=== PATIENT | male | born 1955 | race Hispanic/Latino ===

== ENCOUNTER 2019-04-06 14:56 | Inpatient (IN) | payer SELFPAY ==
[~2019-04-06] VITALS: Ht 162.6 cm; Wt 74.8 kg
[2019-04-06 15:14] LABS: BASOPHILS % (AUTO) 0.7 % (0.0-5.0); EOSINOPHILS % (AUTO) 4.7 % (0.0-8.0); LYMPHOCYTES % (AUTO) 29.9 % (21.0-51.0); MEAN CORPUSCULAR HEMOGLOBIN 34.3 pg (27.0-33.0); MEAN CORPUSCULAR HGB CONC 35.5 g/dL (32.0-36.0); MEAN CORPUSCULAR VOLUME 96.6 fL (79-99); MONOCYTES % (AUTO) 12.6 % (3.0-13.0); NEUTROPHILS % (AUTO) 52.1 % (40.0-77.0); NUCLEATED RED BLOOD CELLS 0.1 % (0.0-0.19); PLATELET COUNT (AUTO) 218 K/uL (130-400); RED BLOOD CELL COUNT(AUTO) 4.87 MIL/uL (4.50-6.20); RED CELL DISTRIBUTION WIDTH 13.2 % (11.0-15.5)
[2019-04-06] MEDS ORDERED: ASPIRIN 325 MG TABLET ONE (15:20)
[2019-04-06 15:34] LABS: APPEARANCE,URINE Clear (CLEAR); BILIRUBIN,URINE Negative (NEGATIVE); COLOR,URINE Yellow (YELLOW); GLUCOSE, URINE (UA) >=1000 mg/dL (NEGATIVE); KETONES,URINE Negative (NEGATIVE); LEUKOCYTE ESTERASE ,URINE Negative (NEGATIVE); NITRATE,URINE Negative (NEGATIVE); OCCULT BLOOD,URINE Small (NEGATIVE); PH,URINE 5.5 (5.0-8.0); PROTEIN,URINE 300 mg/dL (NEGATIVE)
[2019-04-06 15:38] LABS: CREATININE 1.2 mg/dL (0.5-1.5); INR 0.94 (0.85-1.15); PARTIAL THROMBOPLASTIN TIME 27.3 SEC (26.3-35.5); POTASSIUM 4.1 mmol/L (3.5-5.1); PROTHROMBIN TIME 9.9 SEC (9.6-11.6)
[2019-04-06] MEDS ORDERED: NITROGLYCERIN 1GM/1 INCH PACKET TD ONE (15:41)
[2019-04-06 15:44] LABS: B-TYPE NATRIURETIC PEPTIDE 170 pg/mL (0-100)
[2019-04-06 15:47] LABS: BACTERIA,URINE Few /HPF (None Seen)
[2019-04-06 15:48] LABS: MUCUS,URINE Few LPF (None Seen); SQUAMOUS EPITHELIAL CELL,UR 0-2 /HPF (0-2)
[2019-04-06 15:51] LABS: ALBUMIN 3.7 g/dL (3.5-5.0); BILIRUBIN,TOTAL 0.4 mg/dL (0.2-1.0); TOTAL PROTEIN, SERUM 7.8 g/dL (6.0-8.3)
[2019-04-06] MEDS ORDERED: MAGNESIUM OXIDE 400 MG TABLET PO ONE (16:04)
[2019-04-06] MEDS ORDERED: METOPROLOL TARTRATE 1 MG/ML 5ML VIAL IV ONE (16:19)
[2019-04-06] MEDS ORDERED: LIDOCAINE PF 2% 5ML ABBOJECT IVP ONE (16:58)
[2019-04-06] MEDS ORDERED: MANNITOL 25% 50ML VIAL IV ONE (16:58)
[2019-04-06] MEDS ORDERED: PHENYLEPHRINE HCL 10 MG/ML 1ML VIAL IV ONE (16:58)
[2019-04-06] MEDS ORDERED: ALBUMIN (HUMAN) 25% 50 ML IV ONE (16:58)
[2019-04-06] MEDS ORDERED: SODIUM BICARB 8.4% 50ML SYRINGE IVP ONE (16:58)
[2019-04-06] MEDS ORDERED: AMINOCAPROIC ACID 250 MG/ML 20 ML VIAL IV ONE (16:58)
[2019-04-06] MEDS ORDERED: MAGNESIUM SULFATE 1 GM/2 ML VIAL IM ONE (16:58)
[2019-04-06] MEDS ORDERED: CALCIUM CHLORIDE 100 MG/ML 10 ML SYG IVP ONE (16:58)
[2019-04-06] MEDS ORDERED: HEPARIN SODIUM 1000UNIT/ML 10ML VIAL IV ONE (16:58)
[2019-04-06 17:30] LABS: AMPHET/METH SCREEN,URINE NEGATIVE (NEGATIVE); BARBITURATE SCREEN, URINE NEGATIVE (NEGATIVE); BENZODIAZEPINES SCREEN,URINE NEGATIVE (NEGATIVE); CANNABINOID SCREEN,URINE NEGATIVE (NEGATIVE); COCAINE SCREEN,URINE NEGATIVE (NEGATIVE); OPIATE SCREEN,URINE NEGATIVE (NEGATIVE); PHENCYCLIDINE SCREEN,URINE NEGATIVE (NEGATIVE)
[2019-04-06] MEDS: SODIUM CHLORIDE 0.9% 1000ML 1,000 ML IV SCH ×2 (17:46→20:44)
[2019-04-06 18:00] LABS: TROPONIN I 0.21 ng/mL (0.00-0.06)
[2019-04-06] MEDS ORDERED: ZOLPIDEM TARTRATE 5 MG TAB PO PRN (18:00)
[2019-04-06] MEDS ORDERED: HYDRALAZINE HCL 20 MG/ML VIAL IV PRN (18:00)
[2019-04-06] MEDS ORDERED: LACTULOSE 20 GM/30 ML UDCUP PO PRN (18:00)
[2019-04-06] MEDS ORDERED: ONDANSETRON HCL 4 MG/2 ML VIAL IV PRN (18:00)
[2019-04-06] MEDS ORDERED: DEXTROSE 50%-WATER 50 ML DISP.SYRIN IV PRN (18:00)
[2019-04-06] MEDS: NITROGLYCERIN 1GM/1 INCH PACKET TD SCH (18:00)
[2019-04-06] MEDS ORDERED: GLUCAGON 1MG KIT 1 MG ML IM PRN (18:00)
[2019-04-06] MEDS ORDERED: POTASSIUM CHLORIDE 10% ELIXIR 20 MEQ/15 ML UDCUP PO PRN (18:00)
[2019-04-06] MEDS ORDERED: GUAIFENESIN-DM 200/20 MG 10 ML PO PRN (18:00)
[2019-04-06] MEDS ORDERED: NITROGLYCERIN 0.4 MG SL TAB SL PRN (18:00)
[2019-04-06] MEDS ORDERED: LIDOCAINE HCL-MPF 1% 2ML VIAL IV PRN (18:00)
[2019-04-06 18:16] LABS: CHOLESTEROL 187 mg/dL (<200); HDL CHOLESTEROL 44 mg/dL (29-71); LDL DIRECT 113 mg/dL (0-99); TRIGLYCERIDES 453 mg/dL (30-200)
[2019-04-06] MEDS ORDERED: ATORVASTATIN CALCIUM 40 MG TABLET ONE (18:23)
[2019-04-06] MEDS: FAMOTIDINE 20MG TAB 20 MG TAB PO SCH (20:44)
[2019-04-06] MEDS: METOPROLOL TARTRATE 25 MG TAB PO SCH (20:44)
[2019-04-06] MEDS: ACETAMINOPHEN 325 MG TAB PO PRN (20:45)
[2019-04-06] MEDS: LISINOPRIL 10 MG TABLET PO SCH (20:46)
[2019-04-06 20:47] VITALS: BP 143/77
[2019-04-06] MEDS: INSULIN HUMULIN R 100 UNIT/ML 3ML SQ SCH (20:53)
[2019-04-06] MEDS: ALPRAZOLAM 0.5 MG TABLET PO SCH (21:00)
[2019-04-06] MEDS ORDERED: TRAM50TA4 PO (22:18)
[2019-04-06] MEDS ORDERED: QUIN20TA26 PO (22:18)
[2019-04-06] MEDS ORDERED: ASPI-555 PO (22:18)
[2019-04-06] MEDS ORDERED: METF-444 PO (22:18)
[2019-04-06 23:32] VITALS: BP 100/57
[2019-04-07] VITALS (14 sets, daily range): BP systolic 122–174; BP diastolic 54–86
[2019-04-07] MEDS: NITROGLYCERIN 1GM/1 INCH PACKET TD SCH ×3 (01:39→17:52)
[2019-04-07 04:56] LABS: HEMOGLOBIN A1C 8.7 % (4.0-6.0)
[2019-04-07 05:07] LABS: CREATININE 1.3 mg/dL (0.5-1.5); MAGNESIUM 1.8 mg/dL (1.80-2.40); PHOSPHORUS 3.6 mg/dL (2.5-4.9); POTASSIUM 3.7 mmol/L (3.5-5.1)
[2019-04-07] MEDS: INSULIN HUMULIN R 100 UNIT/ML 3ML SQ SCH ×4 (05:40→21:00)
[2019-04-07] MEDS: LISINOPRIL 10 MG TABLET PO SCH ×2 (07:21→21:02)
[2019-04-07] MEDS: METOPROLOL TARTRATE 25 MG TAB PO SCH ×2 (07:21→21:00)
[2019-04-07] MEDS ORDERED: LIDOCAINE HCL 2% 20ML ONE (07:32)
[2019-04-07] MEDS ORDERED: NITROGLYCERIN 5 MG/ML 10 ML VIAL IV ONE (07:32)
[2019-04-07] MEDS ORDERED: IOHEXOL-350 50ML VIAL IV ONE (07:32)
[2019-04-07] MEDS ORDERED: HEPARIN SODIUM 1000UNIT/ML 10ML VIAL ONE (07:32)
[2019-04-07] MEDS ORDERED: IOHEXOL 350 MG/ML 100ML INFUS..BTL IV ONE (07:32)
[2019-04-07] MEDS ORDERED: MIDAZOLAM HCL 1 MG/ML 2ML VIAL ONE (08:28)
[2019-04-07] MEDS ORDERED: NITROGLYCERIN 4.1 GM SPRAY TL ONE (08:37)
[2019-04-07] MEDS ORDERED: ENOXAPARIN SODIUM 40 MG/0.4 ML SYRINGE SQ SCH (09:00)
[2019-04-07] MEDS ORDERED: ASPIRIN 81MG TAB.CHEW PO SCH (09:00)
[2019-04-07] MEDS ORDERED: DEXTROSE 50%-WATER 50 ML DISP.SYRIN IV PRN (09:15)
[2019-04-07] MEDS ORDERED: GLUCAGON 1MG KIT 1 MG ML IM PRN (09:15)
[2019-04-07] MEDS: TRAMADOL HCL 50 MG TABLET PO PRN ×2 (09:54→21:10)
[2019-04-07] MEDS: FAMOTIDINE 20MG TAB 20 MG TAB PO SCH ×2 (09:54→21:01)
[2019-04-07] MEDS: MAGNESIUM OXIDE 400 MG TABLET PO SCH ×2 (09:55→21:02)
[2019-04-07] MEDS: SODIUM CHLORIDE 0.9% 1000ML 1,000 ML IV SCH (13:20)
--- NOTE | 2019-04-07 13:23 | NUR ---
DC PLAN PER PATIENT IS INDEPENDENT, LIVES ALONE, NO PROVIDER OR SERVICES, NO EQUIPMENT AND STATES HE FEELS SAFE TO RETURN HOME. Addendum: 04/07/19 at 1328 by JOE WILSON Amended: Links added.
[2019-04-07 16:26] LABS: HEMATOCRIT 40.5 % (42-54); MEAN CORPUSCULAR HEMOGLOBIN 33.7 pg (27.0-33.0); MEAN CORPUSCULAR HGB CONC 35.4 g/dL (32.0-36.0); MEAN CORPUSCULAR VOLUME 95.3 fL (79-99); NUCLEATED RED BLOOD CELLS 0.1 % (0.0-0.19); PLATELET COUNT (AUTO) 192 K/uL (130-400); RED BLOOD CELL COUNT(AUTO) 4.25 MIL/uL (4.50-6.20); RED CELL DISTRIBUTION WIDTH 13.2 % (11.0-15.5); WHITE BLOOD COUNT (AUTO) 6.4 K/uL (4.8-10.8)
[2019-04-07 16:41] LABS: CREATININE 1.1 mg/dL (0.5-1.5); INR 1.02 (0.85-1.15); PARTIAL THROMBOPLASTIN TIME 27.7 SEC (26.3-35.5); POTASSIUM 3.9 mmol/L (3.5-5.1); PROTHROMBIN TIME 10.7 SEC (9.6-11.6)
[2019-04-07 16:43] LABS: HEMOGLOBIN A1C 8.5 % (4.0-6.0)
[2019-04-07 16:54] LABS: B-TYPE NATRIURETIC PEPTIDE 181 pg/mL (0-100)
[2019-04-07] MEDS: ALPRAZOLAM 0.5 MG TABLET PO SCH (21:00)
[2019-04-07] MEDS: ATORVASTATIN CALCIUM 40 MG TABLET PO SCH (21:01)
[2019-04-08] VITALS (33 sets, daily range): BP systolic 89–155; BP diastolic 35–81
[2019-04-08 03:59] LABS: BASOPHILS % (AUTO) 0.4 % (0.0-5.0); EOSINOPHILS % (AUTO) 2.6 % (0.0-8.0); HEMATOCRIT 41.4 % (42-54); LYMPHOCYTES % (AUTO) 22.7 % (21.0-51.0); MEAN CORPUSCULAR HEMOGLOBIN 34.5 pg (27.0-33.0); MEAN CORPUSCULAR HGB CONC 35.8 g/dL (32.0-36.0); MEAN CORPUSCULAR VOLUME 96.4 fL (79-99); MONOCYTES % (AUTO) 11.7 % (3.0-13.0); NEUTROPHILS % (AUTO) 62.6 % (40.0-77.0); NUCLEATED RED BLOOD CELLS 0.1 % (0.0-0.19); PLATELET COUNT (AUTO) 182 K/uL (130-400); RED BLOOD CELL COUNT(AUTO) 4.29 MIL/uL (4.50-6.20)
[2019-04-08 04:08] LABS: CREATININE 1.1 mg/dL (0.5-1.5); MAGNESIUM 2.4 mg/dL (1.80-2.40)
[2019-04-08] MEDS: NITROGLYCERIN 1GM/1 INCH PACKET TD SCH (04:20)
[2019-04-08] MEDS: INSULIN HUMULIN R 100 UNIT/ML 3ML SQ SCH (06:04)
[2019-04-08] MEDS ORDERED: CEFAZOLIN SODIUM 1 GM VIAL ONE ×2 (06:53→11:24)
[2019-04-08] MEDS ORDERED: SODIUM CHLORIDE 0.9% 1000ML 1,000 ML IV ONE (06:53)
[2019-04-08] MEDS ORDERED: NITROGLYCERIN 50 MG/D5% WATER 1 BOT ONE (07:13)
[2019-04-08] MEDS ORDERED: PROTAMINE SULFATE 10 MG/ML 25ML VIAL IV ONE ×2 (07:15→11:43)
[2019-04-08] MEDS ORDERED: ESMOLOL HCL 10 MG/ML 10 ML VIAL ONE ×2 (07:15→07:43)
[2019-04-08] MEDS ORDERED: LIDOCAINE PF 2% 5ML ABBOJECT ONE ×2 (07:15→07:18)
[2019-04-08] MEDS ORDERED: EPINEPHRINE 1 MG/ML AMPULE ONE (07:16)
[2019-04-08] MEDS ORDERED: MIDAZOLAM HCL 1 MG/ML 2ML VIAL ONE (07:16)
[2019-04-08] MEDS ORDERED: ROCURONIUM 10MG/1ML SYR 10 MG/ML ML ONE ×3 (07:16→10:15)
[2019-04-08] MEDS ORDERED: NOREPINEPHRINE BITARTRATE 1 MG/1 ML ML IV ONE (07:16)
[2019-04-08] MEDS ORDERED: AMINOCAPROIC ACID 250 MG/ML 20 ML VIAL IV ONE (07:16)
[2019-04-08] MEDS ORDERED: PROPOFOL 10 MG/ML 20ML VIAL IV ONE (07:16)
[2019-04-08] MEDS ORDERED: SODIUM BICARB 50MEQ 50ML VIAL ONE (07:16)
[2019-04-08] MEDS ORDERED: HEPARIN SODIUM 1000UNIT/ML 10ML VIAL ONE (07:16)
[2019-04-08] MEDS ORDERED: FENTANYL CITRATE PF 50 MCG/1 ML 2ML VIAL ONE ×4 (07:17→07:18)
[2019-04-08] MEDS ORDERED: ETOMIDATE 2 MG/ML 10 ML VIAL ONE (07:18)
[2019-04-08] MEDS ORDERED: AMIODARONE HCL 50 MG/ML 3 ML VIAL ONE (07:21)
[2019-04-08] MEDS ORDERED: VASOPRESSIN 20 UNITS/ML 1ML VIAL ONE (07:22)
[2019-04-08] MEDS ORDERED: CEFAZOLIN SODIUM 1 GM VIAL IVP PRN (08:00)
[2019-04-08] MEDS ORDERED: DELNIDO FORMULA 1 BAG IV ONE (08:08)
[2019-04-08 08:17] LABS: ABG BASE EXCESS -2.1 mmol/L (-2.0-3.0); ABG HCO3 22.5 mmol/L (21.0-28.0); ABG OXYGEN SATURATION 99.4 % (95.0-99.0); ABG PCO2 38 mmHg (35-48)
[2019-04-08] MEDS ORDERED: FENTANYL CITRATE PF 50 MCG/1 ML 5ML AMP IV ONE ×4 (08:25→11:46)
[2019-04-08] MEDS ORDERED: BACITRACIN 50,000 UNIT VIAL ONE (08:28)
[2019-04-08] MEDS ORDERED: PAPAVERINE HCL 30 MG/ML 2ML VIAL ONE (08:28)
[2019-04-08 09:40] LABS: ABG BASE EXCESS -3.9 mmol/L (-2.0-3.0); ABG HCO3 21.8 mmol/L (21.0-28.0); ABG OXYGEN SATURATION 98.6 % (95.0-99.0); ABG PCO2 42 mmHg (35-48)
[2019-04-08 10:34] LABS: ABG BASE EXCESS 5.1 mmol/L (-2.0-3.0); ABG HCO3 29.4 mmol/L (21.0-28.0); ABG OXYGEN SATURATION 98.8 % (95.0-99.0); ABG PCO2 42 mmHg (35-48)
[2019-04-08] MEDS ORDERED: INSULIN HUMULIN R 100 UNIT/ML 3ML ONE (10:43)
[2019-04-08 11:02] LABS: ABG HCO3 21.8 mmol/L (21.0-28.0); ABG OXYGEN SATURATION 98.7 % (95.0-99.0); ABG PCO2 42 mmHg (35-48)
[2019-04-08] MEDS ORDERED: SODIUM CHLORIDE 0.9% 500ML 500 ML IV SCH (11:26)
[2019-04-08] MEDS ORDERED: SODIUM CHLORIDE 0.9% 10 ML VIAL IVP PRN (11:30)
[2019-04-08] MEDS ORDERED: SODIUM BICARB 50MEQ 50ML VIAL IV PRN (11:30)
[2019-04-08] MEDS ORDERED: ONDANSETRON HCL 4 MG/2 ML VIAL IV PRN (11:30)
[2019-04-08] MEDS ORDERED: TRAMADOL HCL 50 MG TABLET PO PRN (11:30)
[2019-04-08] MEDS ORDERED: PROPOFOL 1000 MG/100 ML 100 ML IV PRN (11:30)
[2019-04-08] MEDS ORDERED: CALCIUM GLUCONATE 1 GM in SODIUM CHLORIDE 0.9% 50 ML IV PRN (11:30)
[2019-04-08] MEDS ORDERED: MAGNESIUM 2GM PREMIX 50ML 50 ML IV PRN (11:30)
[2019-04-08] MEDS ORDERED: SODIUM CHLORIDE 0.9% 1000ML 1,000 ML IV SCH (11:30)
[2019-04-08] MEDS ORDERED: NITROGLYCERIN 50 MG/D5% WATER 250 BOT IV SCH (11:30)
[2019-04-08] MEDS ORDERED: MORPHINE SULFATE 2 MG/ML 1ML SYG IV PRN (11:30)
[2019-04-08] MEDS ORDERED: DEXTROSE 50%-WATER 50 ML DISP.SYRIN IV PRN (11:30)
[2019-04-08] MEDS ORDERED: MORPHINE SULFATE 4 MG/1ML SYG IV PRN (11:30)
[2019-04-08] MEDS ORDERED: ALBUMIN (HUMAN) 5% 250 ML IV PRN (11:30)
[2019-04-08] MEDS ORDERED: POTASSIUM PHOS 15 mMOL+NS250ML 250 ML IV PRN (11:30)
[2019-04-08] MEDS ORDERED: ACETAMINOPHEN 325 MG TAB PO PRN (11:30)
[2019-04-08] MEDS ORDERED: GLUCAGON 1MG KIT 1 MG ML IM PRN (11:30)
[2019-04-08] MEDS ORDERED: ACETAMINOPHEN 650 MG SUPPOSITORY RC PRN (11:30)
[2019-04-08] MEDS ORDERED: INSULIN REGULAR, HUMAN 3ML 100 UNIT in SODIUM CHLORIDE 0.9% 99 ML IV SCH ×2 (11:30)
[2019-04-08] MEDS ORDERED: AMINOCAPROIC ACID 15,000 MG in SODIUM CHLORIDE 0.9% 250 ML IV SCH (11:30)
[2019-04-08] MEDS ORDERED: SODIUM CHLORIDE 0.9% 250 ML IV PRN (11:30)
[2019-04-08] MEDS ORDERED: NOREPINEPHRINE 4MG/NS 250ML 250 ML IV PRN (11:30)
[2019-04-08] MEDS ORDERED: EPINEPHRINE 8 MG in DEXTROSE 5%-WATER 250 ML IV PRN (11:30)
[2019-04-08 11:33] LABS: ABG BASE EXCESS -5.2 mmol/L (-2.0-3.0); ABG HCO3 20.8 mmol/L (21.0-28.0); ABG OXYGEN SATURATION 96.6 % (95.0-99.0); ABG PCO2 42 mmHg (35-48)
[2019-04-08] MEDS ORDERED: POTASSIUM CHLORIDE 20MEQ/100ML 300 ML IV ONE (11:35)
[2019-04-08] MEDS ORDERED: METOPROLOL TARTRATE 1 MG/ML 5ML VIAL IV ONE (11:42)
--- NOTE | 2019-04-08 12:10 | NUR ---
ARRIVAL TO [facility] Received from OR.Dr. Crook and JOE Eastman at bedside. Orally intubated with 7.5ETT at 21cm at lips, connected to Endotracheal cardiac output monitor, tolerating vent settings as prescribed. Left radial arterial line patent, leveled and zeroed. Levophed drip at 8mcg/min, Epinephrine drip at 0.05mcg/kg/min, Amicar at 50cc/hr via 9fr Central line triple lumen to right IJ. 18gauge IV catheter to left forearm patent. Chest tubes x3, patent, no air leak noted with sanguineous output. Arreguin catheter to gravity. Pulses palpable. Zack-wrap to left donor leg. Sinus mechanism in 80s, no ectopy. ASBP 140s. Addendum: 04/08/19 at 1846 by ALLI TRISTAN RN pacing wires attached to chest.
[2019-04-08 12:33] LABS: MEAN CORPUSCULAR HEMOGLOBIN 33.9 pg (27.0-33.0); MEAN CORPUSCULAR HGB CONC 34.9 g/dL (32.0-36.0); MEAN CORPUSCULAR VOLUME 97.2 fL (79-99); NUCLEATED RED BLOOD CELLS 0.1 % (0.0-0.19); PLATELET COUNT (AUTO) 163 K/uL (130-400); RED BLOOD CELL COUNT(AUTO) 3.91 MIL/uL (4.50-6.20); WHITE BLOOD COUNT (AUTO) 22.2 K/uL (4.8-10.8)
[2019-04-08 12:35] LABS: ABG BASE EXCESS -5.1 mmol/L (-2.0-3.0); ABG OXYGEN SATURATION 93.6 % (95.0-99.0); ABG PCO2 43 mmHg (35-48)
[2019-04-08 12:42] LABS: INR 1.14 (0.85-1.15); PARTIAL THROMBOPLASTIN TIME 24.3 SEC (26.3-35.5); PROTHROMBIN TIME 11.9 SEC (9.6-11.6)
[2019-04-08 12:48] LABS: CREATININE 1.4 mg/dL (0.5-1.5); PHOSPHORUS 2.7 mg/dL (2.5-4.9); POTASSIUM 3.5 mmol/L (3.5-5.1)
[2019-04-08] MEDS: POTASSIUM CHLORIDE 20MEQ/100ML 100 ML IV PRN ×5 (13:07→21:17)
--- NOTE | 2019-04-08 13:10 | NUR ---
BENCHMARK Kimberly Chaves in to see pt, new orders received and will carry out.
[2019-04-08] MEDS ORDERED: FUROSEMIDE 10 MG/ML 2ML VIAL IV SCH (13:15)
--- NOTE | 2019-04-08 13:15 | NUR ---
CARDIOLOGY [facility] paged to notify about pt's arrival to [facility], Eva answered and stated Dr. Leyva was already aware and will see the pt in am.
[2019-04-08 14:22] LABS: ABG HCO3 30.1 mmol/L (21.0-28.0); ABG PCO2 41 mmHg (35-48)
--- NOTE | 2019-04-08 14:45 | NUR ---
FAMILY Family in to see pt, plan of care discussed. Marcial Steward (brother) identified as person of contact, may be reached at .
--- NOTE | 2019-04-08 14:55 | NUR ---
SURGEON Dr. Parada in to see pt, update given. Wean to extubate per CVR protocol, will carry out.
[2019-04-08] MEDS: CEFAZOLIN SODIUM 1 GM VIAL IV SCH (16:24)
[2019-04-08 17:44] LABS: ABG BASE EXCESS 5.2 mmol/L (-2.0-3.0); ABG HCO3 28.5 mmol/L (21.0-28.0); ABG OXYGEN SATURATION 98.5 % (95.0-99.0); ABG PCO2 37 mmHg (35-48)
[2019-04-08 18:22] LABS: ABG BASE EXCESS 5.1 mmol/L (-2.0-3.0); ABG HCO3 29.6 mmol/L (21.0-28.0); ABG OXYGEN SATURATION 96.6 % (95.0-99.0); ABG PCO2 43 mmHg (35-48)
--- NOTE | 2019-04-08 18:25 | NUR ---
EXTUBATION Fully awake, alert, following commands. Able to sustain head-lift, strong bilateral hand immigration manager. Arterial blood gases completed. Negative inspiratory force of 23oeV2n, Vital capacity of 750cc. Extubated and placed on Aerosol mask 40%, tolerating well. Instructed not to speak for 2 hours, nods understanding.
--- NOTE | 2019-04-08 19:02 | NUR ---
MD NOTIFICATION Dr. Parada notified of core Temperature 102.0, update given on extubation as well.
--- NOTE | 2019-04-08 19:30 | NUR ---
ASSESSMENT PT DROWSY BUT AROUSES EASILY, FOLLOWS SIMPLE COMMANDS. PT RECEIVING FLUIDS. 40% AEROSOL MASK IN PLACE. TEMP 102.[address] MARC OLIVEIRA MADE AWARE BY LILIYA DIAZ. PT ORIENTED TO TIME, PERSON AND PLACE. MONITOR REVIEWED AND PARAMETERS ADJUSTED. ASSESSMENT COMPLETED, SEE FLOW SHEET. NURSE AT BEDSIDE PER 1:1.
[2019-04-08 19:41] LABS: ABG BASE EXCESS 3.2 mmol/L (-2.0-3.0); ABG HCO3 26.9 mmol/L (21.0-28.0); ABG OXYGEN SATURATION 96.8 % (95.0-99.0); ABG PCO2 38 mmHg (35-48)
[2019-04-08] MEDS: FAMOTIDINE/PF 20 MG/2 ML VIAL IV SCH (20:27)
[2019-04-08] MEDS: ATORVASTATIN CALCIUM 40 MG TABLET PO SCH (20:57)
[2019-04-09] VITALS (24 sets, daily range): BP systolic 104–150; BP diastolic 50–180
[2019-04-09] MEDS: CEFAZOLIN SODIUM 1 GM VIAL IV SCH ×2 (00:38→08:08)
[2019-04-09] MEDS: TRAMADOL HCL 50 MG TABLET PO PRN ×3 (02:30→17:17)
--- NOTE | 2019-04-09 04:00 | NUR ---
ASSESSMENT PT DROWSY BUT AROUSES EASILY, FOLLOWS SIMPLE COMMANDS. PT RECEIVING FLUIDS. O2 3L NC. NSR. PT ORIENTED TO TIME, PERSON AND PLACE. ASSESSMENT COMPLETED, SEE FLOW SHEET. NURSE AT BEDSIDE PER 1:1.
[2019-04-09 04:11] LABS: ABG BASE EXCESS 2.7 mmol/L (-2.0-3.0); ABG HCO3 26.5 mmol/L (21.0-28.0); ABG OXYGEN SATURATION 91.1 % (95.0-99.0); ABG PCO2 38 mmHg (35-48)
[2019-04-09 04:20] LABS: HEMATOCRIT 37.3 % (42-54); MEAN CORPUSCULAR HEMOGLOBIN 33.8 pg (27.0-33.0); MEAN CORPUSCULAR HGB CONC 34.9 g/dL (32.0-36.0); NUCLEATED RED BLOOD CELLS 0.1 % (0.0-0.19); PLATELET COUNT (AUTO) 148 K/uL (130-400); RED BLOOD CELL COUNT(AUTO) 3.84 MIL/uL (4.50-6.20); RED CELL DISTRIBUTION WIDTH 13.5 % (11.0-15.5); WHITE BLOOD COUNT (AUTO) 11.3 K/uL (4.8-10.8)
[2019-04-09 04:23] LABS: ABG BASE EXCESS 2.3 mmol/L (-2.0-3.0); ABG HCO3 26.2 mmol/L (21.0-28.0); ABG OXYGEN SATURATION 91.5 % (95.0-99.0); ABG PCO2 39 mmHg (35-48)
[2019-04-09 04:32] LABS: INR 1.09 (0.85-1.15); PROTHROMBIN TIME 11.4 SEC (9.6-11.6)
[2019-04-09 04:35] LABS: CREATININE 1.4 mg/dL (0.5-1.5); MAGNESIUM 2.3 mg/dL (1.80-2.40); POTASSIUM 4.3 mmol/L (3.5-5.1)
--- NOTE | 2019-04-09 06:40 | NUR ---
DR MARC TRAN INTO SEE PT
[2019-04-09] MEDS ORDERED: FUROSEMIDE 10 MG/ML 2ML VIAL IV SCH (07:00)
--- NOTE | 2019-04-09 07:17 | NUR ---
DR SAL HUANG INTO SEE PT
[2019-04-09] MEDS: FAMOTIDINE/PF 20 MG/2 ML VIAL IV SCH ×2 (08:08→20:41)
[2019-04-09] MEDS: ASPIRIN 325MG EC TAB 325 MG TABLET.DR PO SCH (08:09)
[2019-04-09] MEDS ORDERED: METOPROLOL TARTRATE 25 MG TAB PO SCH (09:00)
[2019-04-09] MEDS: ACETAMINOPHEN 325 MG TAB PO PRN (19:42)
[2019-04-09] MEDS: ATORVASTATIN CALCIUM 10 MG TABLET PO SCH (20:41)
[2019-04-10] VITALS (12 sets, daily range): BP systolic 133–146; BP diastolic 71–82
[2019-04-10 04:36] LABS: HEMATOCRIT 35.5 % (42-54); MEAN CORPUSCULAR HEMOGLOBIN 33.7 pg (27.0-33.0); MEAN CORPUSCULAR HGB CONC 34.7 g/dL (32.0-36.0); MEAN CORPUSCULAR VOLUME 97.1 fL (79-99); PLATELET COUNT (AUTO) 146 K/uL (130-400); RED BLOOD CELL COUNT(AUTO) 3.66 MIL/uL (4.50-6.20); RED CELL DISTRIBUTION WIDTH 13.4 % (11.0-15.5); WHITE BLOOD COUNT (AUTO) 11.5 K/uL (4.8-10.8)
[2019-04-10 04:51] LABS: CREATININE 1.2 mg/dL (0.5-1.5); POTASSIUM 3.6 mmol/L (3.5-5.1)
[2019-04-10] MEDS: POTASSIUM CHLORIDE 20MEQ/100ML 100 ML IV PRN ×2 (05:31→06:38)
[2019-04-10] MEDS: TRAMADOL HCL 50 MG TABLET PO PRN (05:32)
[2019-04-10] MEDS ORDERED: FAMOTIDINE 20MG TAB 20 MG TAB ONE (08:35)
[2019-04-10] MEDS: METOPROLOL TARTRATE 25 MG TAB PO SCH ×2 (08:38→20:25)
[2019-04-10] MEDS: ASPIRIN 325MG EC TAB 325 MG TABLET.DR PO SCH (08:38)
[2019-04-10] MEDS: FAMOTIDINE 20MG TAB 20 MG TAB PO SCH ×2 (08:44→20:26)
[2019-04-10] MEDS: INSULIN HUMULIN R 100 UNIT/ML 3ML SQ SCH ×3 (12:00→21:00)
--- NOTE | 2019-04-10 17:25 | NUR ---
RECEIVED TRANSFER VIA RECLINER. AAOX3, RESP.'S EVEN AND UNLABORED. DENIES ANY CURRENT SOB, DENIES ANY CURRENT PAIN. JULI OQUENDO IN PLACE, MAYIG D/I. MS MAYIG IN PLACE, D/I. ORIENTED TO ROOM AND SURROUNDINGS. CALL LIGHT WITHIN REACH, VERBALIZED ABILITY TO USE. IS USE INSTRUCTED AND ENCOURAGED.
[2019-04-10] MEDS: ATORVASTATIN CALCIUM 10 MG TABLET PO SCH (20:26)
[2019-04-10] MEDS: ACETAMINOPHEN 325 MG TAB PO PRN (20:27)
[2019-04-10 21:31] LABS: MAGNESIUM 1.8 mg/dL (1.80-2.40); POTASSIUM 3.7 mmol/L (3.5-5.1)
[2019-04-11 00:29] VITALS: BP 120/59
[2019-04-11 04:23] VITALS: BP 138/72
[2019-04-11 04:48] LABS: HEMATOCRIT 34.8 % (42-54); MEAN CORPUSCULAR HEMOGLOBIN 33.9 pg (27.0-33.0); MEAN CORPUSCULAR HGB CONC 35.2 g/dL (32.0-36.0); MEAN CORPUSCULAR VOLUME 96.5 fL (79-99); PLATELET COUNT (AUTO) 158 K/uL (130-400); RED BLOOD CELL COUNT(AUTO) 3.61 MIL/uL (4.50-6.20); RED CELL DISTRIBUTION WIDTH 13.1 % (11.0-15.5); WHITE BLOOD COUNT (AUTO) 8.6 K/uL (4.8-10.8)
[2019-04-11 04:59] LABS: CREATININE 1.1 mg/dL (0.5-1.5); POTASSIUM 3.6 mmol/L (3.5-5.1)
[2019-04-11] MEDS: INSULIN HUMULIN R 100 UNIT/ML 3ML SQ SCH ×4 (06:50→21:33)
[2019-04-11 07:27] VITALS: BP 142/69
--- NOTE | 2019-04-11 08:56 | NUR ---
DR. Nathalie WESLEY IN ROOM SPEAKING WITH PT. RE:PLAN OF CARE. QUESTIONS ANSWERED BY DR. WESLEY.
[2019-04-11] MEDS: ENALAPRIL MALEATE 5 MG TAB PO SCH ×2 (10:02→21:22)
[2019-04-11] MEDS: FAMOTIDINE 20MG TAB 20 MG TAB PO SCH ×2 (10:02→21:22)
[2019-04-11] MEDS: METOPROLOL TARTRATE 25 MG TAB PO SCH ×2 (10:03→21:22)
[2019-04-11] MEDS: ENOXAPARIN SODIUM 30 MG/0.3 ML SQ SCH (10:03)
[2019-04-11] MEDS: ASPIRIN 325MG EC TAB 325 MG TABLET.DR PO SCH (10:03)
[2019-04-11 11:59] VITALS: BP 129/61
[2019-04-11 15:51] VITALS: BP 126/66
[2019-04-11] MEDS: TRAMADOL HCL 50 MG TABLET PO PRN (18:41)
[2019-04-11] MEDS ORDERED: LACTULOSE 20 GM/30 ML UDCUP PO PRN (20:30)
[2019-04-11 20:52] VITALS: BP 132/62
[2019-04-11] MEDS: ATORVASTATIN CALCIUM 40 MG TABLET PO SCH (21:22)
[2019-04-12] VITALS (7 sets, daily range): BP systolic 107–130; BP diastolic 59–71
[2019-04-12 05:14] LABS: HEMATOCRIT 35.8 % (42-54); MEAN CORPUSCULAR HEMOGLOBIN 34.1 pg (27.0-33.0); MEAN CORPUSCULAR HGB CONC 35.7 g/dL (32.0-36.0); MEAN CORPUSCULAR VOLUME 95.5 fL (79-99); PLATELET COUNT (AUTO) 196 K/uL (130-400); RED BLOOD CELL COUNT(AUTO) 3.75 MIL/uL (4.50-6.20); RED CELL DISTRIBUTION WIDTH 12.9 % (11.0-15.5); WHITE BLOOD COUNT (AUTO) 6.5 K/uL (4.8-10.8)
[2019-04-12 05:38] LABS: POTASSIUM 3.2 mmol/L (3.5-5.1)
[2019-04-12] MEDS: INSULIN HUMULIN R 100 UNIT/ML 3ML SQ SCH ×4 (06:38→22:00)
[2019-04-12] MEDS: POTASSIUM CHLORIDE 20 MEQ ERTAB PO PRN ×3 (06:38→14:17)
[2019-04-12] MEDS: METOPROLOL TARTRATE 25 MG TAB PO SCH ×2 (07:37→21:58)
[2019-04-12] MEDS: FAMOTIDINE 20MG TAB 20 MG TAB PO SCH ×2 (07:37→21:58)
[2019-04-12] MEDS: ASPIRIN 325MG EC TAB 325 MG TABLET.DR PO SCH (07:37)
[2019-04-12] MEDS: ENALAPRIL MALEATE 5 MG TAB PO SCH ×2 (07:37→21:58)
[2019-04-12] MEDS: ENOXAPARIN SODIUM 30 MG/0.3 ML SQ SCH (07:38)
[2019-04-12] MEDS ORDERED: MAGNESIUM OXIDE 400 MG TABLET PO SCH (08:45)
--- NOTE | 2019-04-12 11:10 | NUR ---
AMBULATING IN HALLWAY WITH P.T. STEADY GAIT NOTED.
[2019-04-12] MEDS: INDOMETHACIN 25 MG CAP PO SCH ×2 (14:16→21:58)
[2019-04-12] MEDS: ATORVASTATIN CALCIUM 40 MG TABLET PO SCH (21:58)
[2019-04-13 04:51] VITALS: BP 122/62
[2019-04-13 05:08] LABS: BASOPHILS % (AUTO) 0.5 % (0.0-5.0); EOSINOPHILS % (AUTO) 5.1 % (0.0-8.0); HEMATOCRIT 32.5 % (42-54); LYMPHOCYTES % (AUTO) 23.3 % (21.0-51.0); MEAN CORPUSCULAR HEMOGLOBIN 34.4 pg (27.0-33.0); MEAN CORPUSCULAR HGB CONC 36.3 g/dL (32.0-36.0); MEAN CORPUSCULAR VOLUME 94.9 fL (79-99); MONOCYTES % (AUTO) 16.2 % (3.0-13.0); NEUTROPHILS % (AUTO) 54.9 % (40.0-77.0); NUCLEATED RED BLOOD CELLS 0.1 % (0.0-0.19); PLATELET COUNT (AUTO) 186 K/uL (130-400); RED BLOOD CELL COUNT(AUTO) 3.42 MIL/uL (4.50-6.20); WHITE BLOOD COUNT (AUTO) 5.3 K/uL (4.8-10.8)
[2019-04-13 05:16] LABS: CREATININE 1.2 mg/dL (0.5-1.5); POTASSIUM 4.4 mmol/L (3.5-5.1)
[2019-04-13 05:32] LABS: % IRON SATURATION 14.4 % (30-44)
[2019-04-13 05:36] LABS: PLATELET MORPHOLOGY PLT CLUMPS PRESENT
[2019-04-13] MEDS: INSULIN HUMULIN R 100 UNIT/ML 3ML SQ SCH (06:25)
[2019-04-13] MEDS: ASPIRIN 325MG EC TAB 325 MG TABLET.DR PO SCH (07:39)
[2019-04-13] MEDS: FAMOTIDINE 20MG TAB 20 MG TAB PO SCH (07:39)
[2019-04-13] MEDS: METOPROLOL TARTRATE 25 MG TAB PO SCH (07:39)
[2019-04-13] MEDS: ENOXAPARIN SODIUM 30 MG/0.3 ML SQ SCH (07:39)
[2019-04-13] MEDS: ENALAPRIL MALEATE 5 MG TAB PO SCH (07:39)
[2019-04-13] MEDS: INDOMETHACIN 25 MG CAP PO SCH (07:40)
[2019-04-13 07:57] VITALS: BP 118/69
--- NOTE | 2019-04-13 08:00 | NUR ---
ASSESSMENT PT IS AAOX3 DENIES CP DENIES SOB DENIES NV NO COMPLAINTS AT THIS TIME. AM MEDS GIVEN. ENCOURAGED COUGH AND DEEP BREATHING WITH HEART PILLOW SPLINTING AND USE OF IS 10XS Q1HR WHILE AWAKE. SITTING UP IN CHAIR EATING BREAKFAST. CALL LIGHT WITHIN REACH.
[2019-04-13] MEDS ORDERED: ATOR40TA69 PO (09:15)
[2019-04-13] MEDS ORDERED: ENAL5TAB PO (09:15)
[2019-04-13] MEDS ORDERED: ASPI-891 PO (09:15)
[2019-04-13] MEDS ORDERED: METO25 PO (09:15)
[2019-04-13] MEDS ORDERED: INDO-16 PO (09:15)
--- NOTE | 2019-04-13 09:20 | NUR ---
ALL CT SUTURES REMOVED STERI STRIPS PLACED OVER SITES, TOLERATED WELL
--- NOTE | 2019-04-13 10:30 | NUR ---
DISCHARGE TO HOME INSTRUCTIONS GIVEN TO PATIENT AND FAMILY, AGREE TO [facility] AT [facility] AND AGREES TO TAKE MEDS ORDERED. AGREE TO FOLLOW UP WITH DR MALLOY AND DR HUANG. ALL QUESTIONS ANSWERED, PIV REMOVED CATH TIP INTACT, TELE PACK REMOVED. DOWN VIA WC WITH NURSE AIDE AND FAMILY TO VEHICLE.
== END 2019-04-13 10:57 | disposition home or self-care (01) | DRG 233 ==
LOC: EDH 14:56 → EDHIP 14:57 → 2AH 19:54 → 2CV 04-08 07:39 → 2CH 04-09 05:47 → 2AH 04-10 17:45
PROVIDERS: ADMIT Internal Medicine; ATTEND Internal Medicine
PROC: 4A023N7 Measurement of Cardiac Sampling and Pressure, Left Heart, Percutaneous Approach (ICD-10-PCS; principal; 2019-04-07)
PROC: B2111ZZ Fluoroscopy of Multiple Coronary Arteries using Low Osmolar Contrast (ICD-10-PCS; 2019-04-07)
PROC: 021209W Bypass Coronary Artery, Three Arteries from Aorta with Autologous Venous Tissue, Open Approach (ICD-10-PCS; 2019-04-08)
PROC: 06BQ4ZZ Excision of Left Saphenous Vein, Percutaneous Endoscopic Approach (ICD-10-PCS; 2019-04-08)
PROC: 06BP4ZZ Excision of Right Saphenous Vein, Percutaneous Endoscopic Approach (ICD-10-PCS; 2019-04-08)
PROC: 02100Z9 Bypass Coronary Artery, One Artery from Left Internal Mammary, Open Approach (ICD-10-PCS; 2019-04-08 08:00)
DX: I21.4 Non-ST elevation (NSTEMI) myocardial infarction (principal); J96.01 Acute respiratory failure with hypoxia; I50.43 Acute on chronic combined systolic (congestive) and diastolic (congestive) heart failure; I31.9 Disease of pericardium, unspecified; E87.2 Acidosis; I11.0 Hypertensive heart disease with heart failure; I25.110 Atherosclerotic heart disease of native coronary artery with unstable angina pectoris; E11.9 Type 2 diabetes mellitus without complications; I49.3 Ventricular premature depolarization; D63.8 Anemia in other chronic diseases classified elsewhere; E78.5 Hyperlipidemia, unspecified; E87.6 Hypokalemia; E78.1 Pure hyperglyceridemia; Z79.899 Other long term (current) drug therapy; I25.2 Old myocardial infarction; Z87.891 Personal history of nicotine dependence; Z79.82 Long term (current) use of aspirin; Z86.73 Personal history of transient ischemic attack (TIA), and cerebral infarction without residual deficits; Z82.49 Family history of ischemic heart disease and other diseases of the circulatory system
CPT/HCPCS: 36415; 71045; 80048; 80053; 80061; 80305; 81001; 82330; 82435; 82550; 82728; 82803; 82947; 82948; 83036; 83540; 83550; 83605; 83735; 83874; 83880; 84100; 84132; 84295; 84484; 85018; 85025; 85027; 85347; 85610; 85730; 86850; 86900; 86901; 86922; 87077; 87088; 87186; 93005; 93306; 93458; 93880; 94002; 94010; 97039; 99156; 99157; 99291; A7048; C1729; C1757; C1760; C1894; G0378; J0171; J0282; J0610; J0690; J1644; J1650; J1815; J1940; J2001; J2150; J2250; J2370; J2440; J2704; J2720; J3010; J3475; J3480; J3490; J7030; J7040; J7120; P9047; Q9967